=== PATIENT | male | born 1990 | race Caucasian/White ===

== ENCOUNTER 2016-07-24 10:37 | Emergency (ER) | payer OTHER | END 2016-07-24 14:17 | disposition home or self-care (01) | LOC: FER 10:37 | DX: S40.851A Superficial foreign body of right upper arm, initial encounter (principal); F17.210 Nicotine dependence, cigarettes, uncomplicated; X58.XXXA Exposure to other specified factors, initial encounter; Y93.89 Activity, other specified; Y92.69 Other specified industrial and construction area as the place of occurrence of the external cause; Y99.0 Civilian activity done for income or pay | CPT/HCPCS: 73060; 90471; 90715; J2270 ==

== ENCOUNTER → 2016-07-25 | Day surgery (SDC) | payer OTHER ==
[~2016-07-25] VITALS: Ht 170.2 cm; Wt 63.5 kg
== END | disposition home or self-care (01) ==
LOC: FAS 10:08
DX: S41.141A Puncture wound with foreign body of right upper arm, initial encounter (principal); F17.210 Nicotine dependence, cigarettes, uncomplicated; Z79.899 Other long term (current) drug therapy; Z98.890 Other specified postprocedural states
CPT/HCPCS: 73060; 76000; 88300; J0690; J1100; J1885; J2405; J2704; J3010